=== PATIENT | female | born 1940 | race Caucasian/White ===

== ENCOUNTER 2017-12-28 09:28 | Emergency (ER) | payer MEDICARE, MEDICAID ==
[~2017-12-28] VITALS: Ht 154.9 cm; Wt 87.0 kg
[2017-12-28] MEDS ORDERED: LEVO25TA4 PO (10:04)
[2017-12-28] MEDS ORDERED: METF500T4 PO (10:04)
[2017-12-28] MEDS ORDERED: GABA-827 PO (10:04)
[2017-12-28] MEDS ORDERED: TRAM50TA2 PO (10:05)
[2017-12-28] MEDS ORDERED: LISI2.5T PO (10:05)
[2017-12-28] MEDS ORDERED: NORT50CA PO (10:06)
[2017-12-28 10:44] LABS: BASOPHILS # (AUTO) 0.11 x10^3/uL (0-0.1); BASOPHILS % (AUTO) 1 % (0-1); EOSINOPHILS # (AUTO) 0.14 x10^3/uL (0-0.4); EOSINOPHILS % (AUTO) 2 % (1-7); LYMPHOCYTES # (AUTO) 1.88 x10^3/uL (1-3.4); LYMPHOCYTES % (AUTO) 20 % (22-44); MD NO; MEAN CORPUSCULAR HEMOGLOBIN 28.8 pg (27.0-34.8); MEAN CORPUSCULAR HGB CONC 33.2 g/dL (32.4-35.8); MEAN CORPUSCULAR VOLUME 86.7 fL (80-100); MEAN PLATELET VOLUME 6.9 fL (7.4-10.4); MONOCYTES # (AUTO) 0.57 x10^3/uL (0.2-0.8); MONOCYTES % (AUTO) 6 % (2-9); NEUTROPHILS # (AUTO) 6.87 x10^3/uL (1.8-6.8); NEUTROPHILS % (AUTO) 72 % (42-75); PLATELET COUNT 238 x10^3/uL (130-400); RED BLOOD COUNT 5.41 x10^6/uL (3.82-5.3); RED CELL DISTRIBUTION WIDTH 14.3 % (9.6-15.2)
[2017-12-28 10:52] LABS: ALBUMIN 3.7 g/dL (3.4-5.0); ANION GAP 8 mmol/L (5-15); CALCIUM 9.4 mg/dL (8.5-10.1); CHLORIDE 100 mmol/L (98-107); CREATININE 0.86 mg/dL (0.55-1.02)
[2017-12-28 10:59] LABS: MICROSCOPIC AUTO
[2017-12-28 11:01] LABS: CULTURE INDICATED? YES
[2017-12-28] MEDS ORDERED: CEFTRIAXONE 1,000 MG IM ONE (11:30)
[2017-12-28] MEDS ORDERED: CEFTRIAXONE 1,000 MG ONE (11:30)
[2017-12-28] MEDS ORDERED: CEFTRIAXONE PMX 1GM/50ML 50 ML IV ONE (11:30)
[2017-12-28 12:40] VITALS: BP 117/61
== END 2017-12-28 12:53 | disposition home or self-care (01) ==
LOC: ED 12:45
DX: K08.89 Other specified disorders of teeth and supporting structures (principal); N30.90 Cystitis, unspecified without hematuria; L03.317 Cellulitis of buttock
CPT/HCPCS: 36415; 80048; 81001; 82040; 85025; 87077; 87086; 87186; 96372; 99284; J0696